=== PATIENT | male | born 1960 | race Caucasian/White ===

== ENCOUNTER 2023-11-19 11:43 | Day surgery (SDC) | payer OTHER ==
[2023-11-19] MEDS: Lactated Ringers 1,000 ML IV SCH (12:17)
[2023-11-19] MEDS ORDERED: propofoL 50 ML ONE (12:37)
== END 2023-11-19 14:25 | disposition home or self-care (01) ==
LOC: MW.SDS 11:43
PROVIDERS: ATTEND Surgery
DX: Z12.11 Encounter for screening for malignant neoplasm of colon (principal); D12.2 Benign neoplasm of ascending colon; K57.30 Diverticulosis of large intestine without perforation or abscess without bleeding; I10 Essential (primary) hypertension; E78.00 Pure hypercholesterolemia, unspecified; Z79.899 Other long term (current) drug therapy; Z79.82 Long term (current) use of aspirin
CPT/HCPCS: 45380; J2704; J7120; 00811